=== PATIENT | male | born 1970 | race Caucasian/White ===

== ENCOUNTER → 2020-05-20 | Outpatient (CLI) | payer BC | END | disposition home or self-care (01) | LOC: LABWHC1 15:44 | PROVIDERS: ATTEND Family Medicine | DX: R05 Cough (principal); Z20.828 Contact with and (suspected) exposure to other viral communicable diseases | CPT/HCPCS: U0003; C9803 ==

== ENCOUNTER → 2021-12-24 | Outpatient (CLI) | payer BC ==
--- NOTE | 2021-12-24 18:10 | US ---
EXAMINATION TYPE: US venous doppler duplex LE RT DATE OF EXAM: 12/24/2021 5:14 PM COMPARISON: NONE CLINICAL HISTORY: M25.561 PHLEBITIS AND THR I80.9 PAIN IN RIGHT KNEE. SIDE PERFORMED: Right TECHNIQUE: The lower extremity deep venous system is examined utilizing real time linear array sonog supa with graded compression, doppler sonography and color-flow sonography. VESSELS IMAGED: Common Femoral Vein Deep Femoral Vein Greater Saphenous Vein * Femoral Vein Popliteal Vein Small Saphenous Vein * Proximal Calf Veins (* superficial vessels) Grayscale, color doppler, spectral doppler imaging performed of the deep veins of the lower extremiti es. There is normal flow, compressibility, vascular waveforms. Right Leg: Negative for DVT , CALF AREA OF PAIN IMAGED, CALF VEINS WERE PATENT IMPRESSION: No evidence of deep vein thrombosis of the right lower extremity.
== END | disposition home or self-care (01) ==
LOC: RADUSWWP 16:06
PROVIDERS: ATTEND Orthopaedic Surgery
DX: I80.9 Phlebitis and thrombophlebitis of unspecified site (principal); M25.561 Pain in right knee

== ENCOUNTER → 2022-03-24 | Outpatient (CLI) | payer BC ==
--- NOTE | 2022-03-24 08:08 | US ---
EXAMINATION TYPE: US liver DATE OF EXAM: 03/24/2022 COMPARISON: Prior ultrasound abdomen limited June 15, 2011 CLINICAL HISTORY: E80.6 hyperbilirubinemia. TECHNIQUE: Multiple sonographic images of the right upper quadrant are obtained. FINDINGS: EXAM MEASUREMENTS: Liver Length: 16.5 cm Gallbladder Wall: 0.2 cm CBD: 0.5 cm Right Kidney: 10.9 x 5.9 x 5.4 cm Pancreas: obscured by overlying midline bowel gas Liver: Increased attenuation Gallbladder: 0.4cm hyperechoic Evidence for sonographic Barrera's sign: no CBD: visualized portions wnl, limited by overlying bowel gas Right Kidney: wnl Suboptimal evaluation of pancreas on initial images due to shadowing from overlying bowel gas. Visual ized liver slightly heterogeneously hyperechoic appearance similar to prior. No worrisome focal mass or ductal dilatation seen. Gallbladder shows 4 mm nonshadowing round nonmobile focus felt to reflect a small polyp. No shadowing mobile gallstones. No pericholecystic fluid or abnormal gallbladder wall thickening. No right-sided hydronephrosis. IMPRESSION: No biliary dilatation is evident.
== END | disposition home or self-care (01) ==
LOC: RADUSWWP 07:02
PROVIDERS: ATTEND Internal Medicine
DX: E80.6 Other disorders of bilirubin metabolism (principal)
CPT/HCPCS: 76705

== ENCOUNTER → 2022-11-09 | Outpatient (CLI) | payer BC ==
--- NOTE | 2022-11-09 15:36 | US ---
EXAMINATION TYPE: US gallbladder DATE OF EXAM: 11/09/2022 COMPARISON: US dated 03/24/2022 CLINICAL INDICATION: Male, 52 years old with history of K82.4 CHOLESTEROLOSIS OF GALLBLADDER; TECHNIQUE: Multiple sonographic images of the right upper quadrant are obtained. FINDINGS: EXAM MEASUREMENTS: Liver Length: 14.1 cm Gallbladder Wall: 0.3 cm CBD: 0.6 cm Right Kidney: 11.1 x 6.6 x 5.9 cm Pancreas: Obscured by bowel gas Liver: Mild increased echogenicity. No focal lesion seen. Gallbladder: No abnormal distention, wall thickening, or surrounding fluid. There is a single 0.7 cm echogenic nonmobile mural-based focus. Evidence for sonographic Barrera's sign: No CBD: wnl Right Kidney: No hydronephrosis or masses seen IMPRESSION: 1. Mild hepatic steatosis. Correlate with LFTs, lipid profile, and patient risk factors. 2. A nonmobile 7 mm echogenic focus along the posterior wall of the gallbladder. Measured 4 mm on 02/26. A small gallbladder wall polyp is suspected. Ongoing 6-12 month follow-up recommended.
== END | disposition home or self-care (01) ==
LOC: RADUSWWP 08:38
PROVIDERS: ATTEND Internal Medicine
DX: K82.4 Cholesterolosis of gallbladder (principal); K76.0 Fatty (change of) liver, not elsewhere classified
CPT/HCPCS: 76705

== ENCOUNTER → 2024-04-03 | Outpatient (CLI) | payer BC ==
--- NOTE | 2024-04-03 09:56 | US ---
EXAMINATION TYPE: US gallbladder DATE OF EXAM: 04/03/2024 COMPARISON: most recent: 08/30/23 CLINICAL INDICATION: Male, 53 years old with history of K82.4 GALLBLADDER POLYP; GB polyp TECHNIQUE: Grayscale and color Doppler imaging of the right upper quadrant was performed. FINDINGS: EXAM MEASUREMENTS: Liver Length: 15.7 cm Gallbladder Wall: 0.23 cm CBD: 0.36 cm Right Kidney: 10.9 x 5.3 x 5.8 cm [employer] NOTES: Pancreas: Obscured by bowel gas Liver: heterogeneous Gallbladder: echogenic area seen in neck measuring 0.68cm Evidence for sonographic Barrera's sign: No CBD: wnl Right Kidney: wnl Pancreas is obscured by overlying bowel gas. Mild increased heterogenous echogenicity of the liver wi thout focal lesion identified. Gallstone identified within the gallbladder neck. No wall thickening o r surrounding fluid. Negative sonographic Barrera's sign. Common bile duct is within normal limits. Ri ght kidney is unremarkable without evidence of hydronephrosis, nephrolithiasis, or renal lesion. IMPRESSION: 1. Cholelithiasis without ultrasound evidence for acute cholecystitis. Previously seen hyperechoic ga llbladder wall focus is no longer visualized. 2. Mild hepatic steatosis. [facility], , 04/03/2024 9:53 AM
== END | disposition home or self-care (01) ==
LOC: RADUSWWP 08:09
PROVIDERS: ATTEND Internal Medicine
DX: K82.4 Cholesterolosis of gallbladder
CPT/HCPCS: 76705